=== PATIENT | male | born 1940 | race Caucasian/White ===

== ENCOUNTER → 2016-12-18 | Outpatient (CLI) | payer MEDICARE, SELFPAY | LOC: HEART 5 10:51 | DX: R55 Syncope and collapse (principal); R29.6 Repeated falls ==

== ENCOUNTER 2020-11-05 18:32 | Emergency (ER) | payer MEDICARE ==
[~2020-11-05 18:32] MED LIST: AMLODIPINE BESY10 MG PO; AMOX TR-K CLV1 EAC4 PO; CINNAMON500 MG PO; COREG 3.125M3.125 MG PO; CRESTOR 10 MG T10 MG PO; CRESTOR20 MG PO; CRESTOR40 MG PO; ECOTRIN81 MG PO; ELIQUIS 2.5 MG2.5 MG PO; ELIQUIS 5 MG TAB5 MG PO; ELIQUIS5 MG PO; HYDROCHLOROTHIA25 MG PO; IBUPROFEN800 MG PO; KLOR-CON M2020 MEQ PO; LASIX20 MG PO; LOPRESSOR 25 MG25 MG PO; LORTAB 5-325 M1 EACH PO; METOPROLOL SUCC25 MG PO; NORCO 5-325 TA1 EACH PO; OMEPRAZOLE20 MG PO; PLAVIX 75 MG TA75 MG PO; PLETAL 100 MG100 MG PO; PROTONIX40 MG PO; SERTRALINE HCL50 MG PO; SYNTHROID125 MCG PO; TAMIFLU 75 MG C75 MG PO; TAMSULOSIN HCL0.4 MG PO; TRAMADOL HCL50 MG PO
[2020-11-05] MEDS ORDERED: CEPHALEXIN500 M1 PO (21:22)
== END 2020-11-05 22:03 | disposition home or self-care (01) ==
LOC: ER1 18:32
DX: S92.511A Displaced fracture of proximal phalanx of right lesser toe(s), initial encounter for closed fracture (principal); S93.114A Dislocation of interphalangeal joint of right lesser toe(s), initial encounter; S91.115A Laceration without foreign body of left lesser toe(s) without damage to nail, initial encounter; S93.401A Sprain of unspecified ligament of right ankle, initial encounter; S80.02XA Contusion of left knee, initial encounter; M25.551 Pain in right hip; M25.552 Pain in left hip; I12.9 Hypertensive chronic kidney disease with stage 1 through stage 4 chronic kidney disease, or unspecified chronic kidney disease; N18.9 Chronic kidney disease, unspecified; I25.10 Atherosclerotic heart disease of native coronary artery without angina pectoris; Z86.73 Personal history of transient ischemic attack (TIA), and cerebral infarction without residual deficits; Z86.711 Personal history of pulmonary embolism; Z87.81 Personal history of (healed) traumatic fracture; Z95.1 Presence of aortocoronary bypass graft; W18.09XA Striking against other object with subsequent fall, initial encounter; Y92.009 Unspecified place in unspecified non-institutional (private) residence as the place of occurrence of the external cause
CPT/HCPCS: 12001; 28660; 72170; 73562; 73610; 73630; 73660; 99283

== ENCOUNTER → 2020-11-25 | Outpatient (CLI) | payer MEDICARE ==
[~2020-11-25] MED LIST changes: +BACTROBAN OINT22 GM EXT; +CEPHALEXIN500 M1 PO
== END ==
LOC: KOH-I 15:47
DX: S92.912A Unspecified fracture of left toe(s), initial encounter for closed fracture (principal); Z53.9 Procedure and treatment not carried out, unspecified reason
CPT/HCPCS: 73630

== ENCOUNTER 2020-12-15 13:59 | Emergency (ER) | payer MEDICARE ==
[~2020-12-15 13:59] MED LIST changes: -BACTROBAN OINT22 GM EXT
[2020-12-15 16:12] LABS: HEMOGLOBIN 14.1 gm/dl (14.0-17.5); RED BLOOD COUNT 4.66 M/UL (4.20-5.50); WHITE BLOOD COUNT 6.2 K/UL (4.5-11.0)
[2020-12-15 16:36] LABS: BUN/CREATININE RATIO 23 (0-10)
== END 2020-12-15 18:05 | disposition home or self-care (01) ==
LOC: ER1 13:59
PROVIDERS: Family Medicine
DX: K92.1 Melena (principal); R19.7 Diarrhea, unspecified; E11.9 Type 2 diabetes mellitus without complications; I10 Essential (primary) hypertension; J44.9 Chronic obstructive pulmonary disease, unspecified; Z95.1 Presence of aortocoronary bypass graft; Z90.49 Acquired absence of other specified parts of digestive tract; Z87.891 Personal history of nicotine dependence
CPT/HCPCS: 80053; 82272; 85025; 99284

== ENCOUNTER → 2020-12-28 | Outpatient (CLI) | payer MEDICARE ==
[~2020-12-28] MED LIST changes: +BACTROBAN OINT22 GM EXT
== END ==
LOC: KOH-I 10:31
DX: S92.511D Displaced fracture of proximal phalanx of right lesser toe(s), subsequent encounter for fracture with routine healing (principal); X58.XXXD Exposure to other specified factors, subsequent encounter
CPT/HCPCS: 73630

== ENCOUNTER → 2021-01-27 | Outpatient (CLI) | payer MEDICARE | LOC: KOH-I 12:53 | DX: S92.511D Displaced fracture of proximal phalanx of right lesser toe(s), subsequent encounter for fracture with routine healing (principal); X58.XXXD Exposure to other specified factors, subsequent encounter | CPT/HCPCS: 73630 ==

== ENCOUNTER 2021-04-03 10:37 | Emergency (ER) | payer MEDICARE ==
[~2021-04-03 10:37] MED LIST changes: -BACTROBAN OINT22 GM EXT
[2021-04-03 12:27] LABS: HEMOGLOBIN 13.4 gm/dl (14.0-17.5); RED BLOOD COUNT 4.3 M/UL (4.20-5.50); WHITE BLOOD COUNT 6.7 K/UL (4.5-11.0)
[2021-04-03 13:03] LABS: BUN/CREATININE RATIO 18 (0-10)
[2021-04-03] MEDS ORDERED: CEPHALEXIN500 M1 PO (13:28)
[2021-04-03] MEDS ORDERED: BACTROBAN OINT22 GM EXT (13:28)
== END 2021-04-03 14:20 | disposition home or self-care (01) ==
LOC: ER1 10:37
PROVIDERS: Emergency Medicine
DX: S92.511B Displaced fracture of proximal phalanx of right lesser toe(s), initial encounter for open fracture (principal); S40.012A Contusion of left shoulder, initial encounter; S80.02XA Contusion of left knee, initial encounter; E07.9 Disorder of thyroid, unspecified; E78.5 Hyperlipidemia, unspecified; I10 Essential (primary) hypertension; I25.10 Atherosclerotic heart disease of native coronary artery without angina pectoris; Z86.73 Personal history of transient ischemic attack (TIA), and cerebral infarction without residual deficits; Z23 Encounter for immunization; Z95.5 Presence of coronary angioplasty implant and graft; F17.200 Nicotine dependence, unspecified, uncomplicated; W20.8XXA Other cause of strike by thrown, projected or falling object, initial encounter; Y92.9 Unspecified place or not applicable
CPT/HCPCS: 12001; 70450; 71045; 73030; 73564; 73630; 80053; 82550; 82553; 83874; 84484; 85025; 90471; 90715; 93005; 96374; 99284; J0690

== ENCOUNTER → 2021-05-17 | Outpatient (CLI) | payer MEDICARE ==
[~2021-05-17] MED LIST changes: +BACTROBAN OINT22 GM EXT
== END ==
LOC: KOH-I 15:18
DX: S92.511A Displaced fracture of proximal phalanx of right lesser toe(s), initial encounter for closed fracture (principal); M19.071 Primary osteoarthritis, right ankle and foot; M19.072 Primary osteoarthritis, left ankle and foot; M89.8X7 Other specified disorders of bone, ankle and foot
CPT/HCPCS: 73630

== ENCOUNTER → 2021-06-16 | Outpatient (CLI) | payer MEDICARE | LOC: KOH-I 14:32 | DX: S92.501A Displaced unspecified fracture of right lesser toe(s), initial encounter for closed fracture (principal); S92.322A Displaced fracture of second metatarsal bone, left foot, initial encounter for closed fracture; M19.071 Primary osteoarthritis, right ankle and foot | CPT/HCPCS: 73630 ==

== ENCOUNTER 2021-11-21 12:41 | Emergency (ER) | payer MEDICARE ==
[2021-11-21] MEDS ORDERED: HYDROCODON-ACE1 EAC4 PO (15:52)
== END 2021-11-21 16:11 | disposition home or self-care (01) ==
LOC: ER1 12:41
DX: M54.50 Low back pain, unspecified (principal); E78.5 Hyperlipidemia, unspecified; I11.9 Hypertensive heart disease without heart failure; E07.9 Disorder of thyroid, unspecified; Z87.891 Personal history of nicotine dependence; W19.XXXA Unspecified fall, initial encounter
CPT/HCPCS: 72131; 99283

== ENCOUNTER → 2021-12-09 | Outpatient (CLI) | payer MEDICARE ==
[~2021-12-09] MED LIST changes: +HYDROCODON-ACE1 EAC4 PO
== END ==
LOC: KOH-I 11-28 15:30
DX: R05.1 Acute cough (principal); K80.20 Calculus of gallbladder without cholecystitis without obstruction
CPT/HCPCS: 71250

== ENCOUNTER → 2022-01-27 | Outpatient (CLI) | payer MEDICARE | LOC: ECHO 01-23 09:00 | DX: Z01.810 Encounter for preprocedural cardiovascular examination (principal); R07.9 Chest pain, unspecified; R06.02 Shortness of breath; I25.10 Atherosclerotic heart disease of native coronary artery without angina pectoris; I70.0 Atherosclerosis of aorta; I08.0 Rheumatic disorders of both mitral and aortic valves; R00.1 Bradycardia, unspecified | CPT/HCPCS: ECHO; 78452; 93017; 93306; A9502; J2785 ==